=== PATIENT | female | born 1990 | race African-American/Black ===

== ENCOUNTER 2021-06-06 17:18 | Emergency (ER) | payer OTHER | END 2021-06-06 22:07 | disposition home or self-care (01) | LOC: FER 17:18 | DX: S90.32XA Contusion of left foot, initial encounter (principal); W20.8XXA Other cause of strike by thrown, projected or falling object, initial encounter; Y92.009 Unspecified place in unspecified non-institutional (private) residence as the place of occurrence of the external cause | CPT/HCPCS: 73630 ==